=== PATIENT | female | born 1950 | race Caucasian/White ===

== ENCOUNTER 2019-06-11 06:15 | Emergency (ER) | payer BC ==
[2019-06-11 07:08] VITALS: TEMP 97.8; BMI 20.1
[2019-06-11] MEDS ORDERED: KETOROLAC TROMETHAMINE 30 MG/1 ML VIAL IM ONE (07:21)
[2019-06-11] MEDS ORDERED: KETOROLAC TROMETHAMINE 30 MG/1 ML VIAL ONE (07:24)
--- NOTE | 2019-06-11 07:29 | PDOC ---
History of Present Illness - General Chief Complaint: Pain Stated Complaint: ABD PAIN Time Seen by Provider: 06/11/19 07:15 History Source: Patient Exam Limitations: Clinical Condition - History of Present Illness Initial Comments: 06/11/19 07:27 Patient with no significant past medical history presented with complaint of sudden onset of worsening pain to the left flank and lower abdominal pain radiating to left mid back since last night. Patient reports she was sitting down pain started suddenly. Patient thinks pain might be caused by gas pattern but not sure. Denies nausea, vomiting, fever, chills, diarrhea or constipation. Denies urinary frequency, burning with urination or hematuria. Denies any other symptoms. Patient did not take anything for symptoms Is this a multiple visit Asthma Patient?: No Timing/Duration: other (last night) Past History - Past Medical History Allergies/Adverse Reactions: Allergies Allergy/AdvReac Type Severity Reaction Status Date / Time No Known Allergies Allergy Verified 08/11/15 12:41 Home Medications: Ambulatory Orders Gabapentin 300 mg PO TID 06/11/19 Mag Hydrox/Aluminum Hyd/Simeth [Maalox Advanced Suspension] 30 ml PO Q8H PRN # 200 ml 06/11/19 Polyethylene Glycol 3350 [Miralax (For Daily Use) -] 17 gm PO DAILY 5 Days #1 bottle 06/11/19 Quetiapine Fumarate [Seroquel -] 25 mg PO HS 06/11/19 Anemia: No Asthma: No Cancer: Yes (cervical cancer) Cardiac Disorders: Yes (ATRIAL FIBRILLATION) CVA: No COPD: No CHF: No Dementia: No Diabetes: No GI Disorders: Yes (gerd) Disorders: No HTN: No Hypercholesterolemia: No Liver Disease: No Psychiatric Problems: Yes Seizures: Yes Thyroid Disease: No - Surgical History Abdominal Surgery: No Appendectomy: No Cardiac Surgery: No Cholecystectomy: No Lung Surgery: No Neurologic Surgery: No Orthopedic Surgery: No - Psycho Social/Smoking Cessation Hx Smoking History: Never smoked Have you smoked in the past 12 months: No Number of Cigarettes Smoked Daily: 0 Hx Alcohol Use: No Drug/Substance Use Hx: No Substance Use Type: None Hx Substance Use Treatment: No Review of Systems - Review of Systems Able to Perform ROS?: Yes Is the patient limited Taiwanese proficient: No Constitutional: No: Chills, Fever, Malaise HEENTM: No: Symptoms Reported, See HPI, Eye Pain, Blurred Vision, Tearing, Recent change in vision, Double Vision, Cataracts, Ear Pain, Ocular Prothesis, Ear Discharge, Nose Pain, Nose Congestion, Tinnitus, Nose Bleeding, Hearing Loss , Throat Pain, Throat Swelling, Mouth Pain, Dental Problems, Difficulty Swallowing, Mouth Swelling, Other Respiratory: No: Symptoms reported, See HPI, Cough, Orthopnea, Shortness of Breath, SOB with Exertion, SOB at Rest, Stridor, Wheezing, Productive cough, Hemoptysis, Other Cardiac (ROS): No: Symptoms Reported, See HPI, Chest Pain, Edema, Irregular Heart Rate, Lightheadedness, Palpitations, Syncope, Chest Tightness, Other ABD/GI: Yes: Symptoms Reported, See HPI, Abdominal cramping (left lower abdominal pain). No: Abdominal Distended, Abd. Pain w/ defecation, Blood Streaked Bowels, Constipated, Diarrhea, Difficulty Swallowing, Nausea, Poor Appetite, Rectal Bleeding, Vomiting, Indigestion, Tarry Stools : Yes: Flank Pain (left flank pain). No: Symptoms Reported, See HPI, Burning , Dysuria, Discharge, Frequency, Hematuria, Incontinence, Pain, Urgency Musculoskeletal: Yes: Back Pain (left midback). No: Symptoms Reported Integumentary: No: Symptoms Reported Neurological: No: Symptoms reported All Other Systems: Reviewed and Negative *Physical Exam - Vital Signs Last Vital Signs Temp Pulse Resp BP Pulse Ox 97.8 F 67 19 137/64 98 06/11/19 06:20 06/11/19 06:20 06/11/19 06:20 06/11/19 06:20 06/11/19 06:20 - Physical Exam Comments: 06/11/19 07:26 GENERAL: Well developed, well nourished. Awake and alert in moderate acute distress. CARDIOVASCULAR: Regular rate and rhythm. No murmurs, rubs, or gallops. PULMONARY: No evidence of respiratory distress. Lungs clear to auscultation bilaterally. No wheezing, rales or rhonchi. ABDOMINAL: Soft. mild tenderness to LLQ. Non-distended. No rebound or guarding. No organomegaly. Normoactive bowel sounds MUSCULOSKELETAL : mild tenderness to lateral aspect of lower back over lower lumber area SKIN: Warm and dry. Normal capillary refill. NEUROLOGICAL: Alert, awake, appropriate. No motor deficits in the lower extremities. Gait is normal without ataxia. PSYCHIATRIC: Cooperative. Good eye contact. Appropriate mood and affect. General Appearance: Yes: Nourished, Appropriately Dressed, Apparent Distress, Moderate Distress ED Treatment Course - LABORATORY CBC & Chemistry Diagram: 06/11/19 07:30 06/11/19 07:30 - RADIOLOGY Radiology Studies Ordered: Category Date Time Status SPIRAL- RENAL-STONE CT [CT] Stat CT Scan 06/11/19 07:22 Ordered Medical Decision Making - Medical Decision Making 06/11/19 07:29 Patient with no significant past medical history presented with complaint of sudden onset of worsening pain to the left flank and lower abdominal pain radiating to left mid back since last night. Patient reports she was sitting down pain started suddenly. Patient thinks pain might be caused by gas pattern but not sure. Denies nausea, vomiting, fever, chills, diarrhea or constipation. Denies urinary frequency, burning with urination or hematuria. Denies any other symptoms. Patient did not take anything for symptoms Abdominal significant for mild tenderness to left lower quadrant and flank area without guarding or rebound. Mild subjective pain to left lower mid back of the lumbar area. No midline tenderness in the back. Symptoms likely kidney stone versus gas pain versus less likely ovarian pathology. CBC, CMP lab ordered. Toradol 30 mg IM ordered for pain. Spiral CT ordered to rule out kidney stone or acute abdominal pathology. UA and urine culture labs ordered 06/11/19 09:42 CBC chemistry lab and urinalysis are unremarkable. Abdominal CT shows mildly dilated small bowel consistent with fecal retention without obstruction. Multiple amount of gallstones again seen which is unchanged from previous imaging with no evidence of cholecystitis. Patient symptoms likely caused by gas pain. Patient reported improvement in pain after Toradol and Maalox. Patient stable for discharge on Maalox and MiraLAX as needed for abdominal discomfort and constipation with advised to increase fluid intake and fiber intake with GI follow-up as needed Discharge - Discharge Information Problems reviewed: Yes Clinical Impression/Diagnosis: LLQ abdominal pain, Abdominal gas pain Condition: Stable Disposition: HOME - Admission No - Additional Discharge Information Prescriptions: Mag Hydrox/Aluminum Hyd/Simeth [Maalox Advanced Suspension] 30 ml PO Q8H PRN # 200 ml PRN Reason: abdominal discomfort Polyethylene Glycol 3350 [Miralax (For Daily Use) -] 17 gm PO DAILY 5 Days #1 bottle - Follow up/Referral Referrals: Mino Staton MD [Staff Physician] - - Patient Discharge Instructions Patient Printed Discharge Instructions: How to Avoid Gas Additional Instructions: CAT scan shows moderate stool with gas in the abdomen without any other acute pathology. Symptoms likely caused by gas in the abdomen. Take prescribed medication as prescribed. Increase fluid intake. Increase fiber intake to help evacuate stool. Follow-up referred to GI doctor if no improvement in 3 days - Post Discharge Activity
[2019-06-11 08:12] LABS: BASO % 0.6 % (0-2.0); HEMATOCRIT 39.1 % (32.4-45.2); HEMOGLOBIN 13.4 GM/dL (10.7-15.3); LYMPH % 24.2 % (8-40); MCH 31.3 pg (25.7-33.7); MCHC 34.3 g/dl (32.0-36.0); MEAN CELL VOLUME 91.3 fl (80-96); MONO % 7.2 % (3.8-10.2); PLATELET COUNT 256 K/MM3 (134-434); RBC 4.28 M/mm3 (3.60-5.2); RDW 13.3 % (11.6-15.6); WHITE BLOOD COUNT 6.3 K/mm3 (4.0-10.0)
[2019-06-11 08:42] LABS: ALBUMIN 3.5 g/dl (3.4-5.0); BILIRUBIN,TOTAL 0.5 mg/dL (0.2-1); BLOOD UREA NITROGEN 14.8 mg/dL (7-18); CALCIUM 9.1 mg/dL (8.5-10.1); CREATININE 0.6 mg/dL (0.55-1.3); POTASSIUM 4.8 mmol/L (3.5-5.1); TOT PROT 6.6 g/dl (6.4-8.2); URINE APPEARANCE CLEAR; URINE BILIRUBIN NEGATIVE (NEGATIVE); URINE COLOR YELLOW; URINE GLUCOSE (UA) NEGATIVE (NEGATIVE); URINE KETONE NEGATIVE (NEGATIVE); URINE LEUK ESTERASE NEGATIVE (NEGATIVE); URINE NITRITE NEGATIVE (NEGATIVE); URINE PROTEIN NEGATIVE (NEGATIVE); URINE UROBILINOGEN 0.2 mg/dL (0.2-1.0)
[2019-06-11] MEDS ORDERED: MAG HYDROX/AL HYDROX/SIMETH 30 ML UNIT-DOSE CUP PO ONE (09:10)
[2019-06-11] MEDS ORDERED: MAG HYDROX/AL HYDROX/SIMETH 30 ML UNIT-DOSE CUP ONE (09:15)
[2019-06-11 09:54] VITALS: BP 123/74; PULSE 58
== END 2019-06-11 09:55 | disposition home or self-care (01) ==
LOC: JER 06:15
PROC: 3E0233Z Introduction of Anti-inflammatory into Muscle, Percutaneous Approach (ICD-10-PCS; principal; 2019-06-11)
DX: R10.32 Left lower quadrant pain (principal); R14.1 Gas pain
CPT/HCPCS: 36415; 74176-TC; 80053; 81003; 85025; 87086; 99282-25